=== PATIENT | female | born 1990 | race Hispanic/Latino ===

== ENCOUNTER 2017-04-26 19:20 | Emergency (ER) | payer BC ==
[2017-04-26 20:47] VITALS: BMI 20.5
[2017-04-26 20:50] VITALS: BP 126/68; PULSE 69; RESP 18; TEMP 98.2; O2SAT 100
--- NOTE | 2017-04-26 21:35 | ED PDOC ---
Lower Extremity Pain/Injury Time Seen by Provider: 04/26/17 21:10 Chief Complaint (Nursing): Lower Extremity Problem/Injury Chief Complaint (Provider): left leg pain/swelling History Per: Patient History/Exam Limitations: no limitations Onset/Duration Of Symptoms: Days (1) Current Symptoms Are (Timing): Better Additional History Per: Patient Additional Complaint(s): 27 y/o female presents with pain/swelling to left leg x 1 day. Patient states she woke up and noted swelling behind left knee, with associated "tightness" when bending knee. Swelling has since improved. Patient was evaluated at Urgent Care and advised to come to ED to rule out a blood clot in the leg. 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 Denies fever, nausea/vomiting , chest pain, shortness of breath, palpitations, known injury to leg, numbness/ weakness left lower extremity Past Medical History Reviewed: Historical Data, Nursing Documentation, Vital Signs Vital Signs: Last Vital Signs Temp 98.2 F 04/26/17 20:48 Pulse 69 04/26/17 20:48 Resp 18 04/26/17 20:48 BP 126/68 04/26/17 20:48 Pulse Ox 100 04/26/17 20:48 - Medical History Other PMH: IBS - Surgical History Surgical History: No Surg Hx - Family History Family History: States: No Known Family Hx - Home Medications Home Medications: Ambulatory Orders Medication Instructions Recorded Naproxen [Naprosyn] 500 mg PO Q12 PRN #20 tablet 04/26/17 - Allergies Allergies/Adverse Reactions: Allergies Allergy/AdvReac Type Severity Reaction Status Date / Time Sulfa (Sulfonamide Allergy RASH Verified 04/26/17 20:47 Antibiotics) Review of Systems ROS Statement: Except As Marked, All Systems Reviewed And Found Negative Musculoskeletal: Positive for: Leg Pain Physical Exam - Reviewed Nursing Documentation Reviewed: Yes Vital Signs Reviewed: Yes - Physical Exam Appears: Positive for: Well, Non-toxic, No Acute Distress Head Exam: Positive for: ATRAUMATIC, NORMAL INSPECTION, NORMOCEPHALIC Cardiovascular/Chest: Positive for: Regular Rate, Rhythm Respiratory: Positive for: Normal Breath Sounds Extremity: Positive for: Normal ROM, Tenderness (posterior left knee with + skin irritation (patient has been scratching area); no lesions, temp change noted) Neurologic/Psych: Positive for: Alert, Oriented - ECG O2 Sat by Pulse Oximetry: 100 - Progress ED Course And Treament: venous duplex LLE EXAM: US Duplex Left Lower Extremity Veins CLINICAL HISTORY: The patient is a 27 years female; Pain; Leg, lower; Left; Additional info: Pain/ swelling 04/26/2017 9:33 PM TECHNIQUE: Real-time ultrasound scan of the veins of the left lower extremity with color Doppler flow, spectral waveform analysis and compression. COMPARISON: No relevant prior studies available. FINDINGS: Deep veins: Unremarkable. No DVT in the visualized common femoral, femoral, proximal deep femoral or popliteal veins. The veins demonstrate normal color flow, are normally compressible, with normal phasic flow and/or augmentation response. Superficial veins: Unremarkable. No thrombus in the visualized great saphenous vein. IMPRESSION: Normal left lower extremity duplex venous ultrasound. Patient educated on findings, discharged with instructions to follow up PMD 2-3 days. Advised RICE. Rx Naproxen given. Return precautions given. Disposition - Clinical Impression Clinical Impression: Leg pain - Patient ED Disposition Is Patient to be Admitted: No Counseled Patient/Family Regarding: Studies Performed, Diagnosis, Need For Followup - Disposition Disposition: Routine/Home Disposition Time: 23:21 Condition: GOOD Prescriptions: Naproxen [Naprosyn] 500 mg PO Q12 PRN #20 tablet PRN Reason: Pain, Moderate (4-7) Instructions: Leg Pain (ED) Forms: [facility] ([place])
--- NOTE | 2017-04-27 09:51 | US ---
PROCEDURE: Ultrasound Doppler venous left lower extremity HISTORY: pain/swelling COMPARISON: None available. TECHNIQUE: Ultrasound Doppler venous evaluation of the left lower extremity venous system was performed. FINDINGS: This study demonstrate patent compressible left lower extremity venous system with response to augmentation. No ultrasound Doppler evidence of deep vein thrombosis in the left common femoral, superficial femoral popliteal and calf veins. IMPRESSION: No ultrasound Doppler evidence of deep vein thrombosis in the left lower extremity. Preliminary report was submitted by [facility].
== END 2017-04-26 23:33 | disposition home or self-care (01) ==
LOC: H.ER 19:20
DX: M25.562 Pain in left knee (principal); M79.605 Pain in left leg